=== PATIENT | female | born 1945 | race Caucasian/White ===

== ENCOUNTER 2017-10-27 12:30 | Emergency (ER) | payer BC, OTHER ==
[2017-10-27 13:08] VITALS: BP 112/46
--- NOTE | 2017-10-27 13:54 | ED Physician Documentation ---
Lower Extremity Injury - HISTORIAN Historian: patient - HPI Stated Complaint: L foot pain Chief Complaint: Lower Extremity Injury Onset: hours Where: home Severity: moderate Context: fall Associated Symptoms:: swelling Modifying Factors:: pain on movement - ROS CONST: no problems CVS/RESP: none GI/: denies: problems urinating, nausea, vomiting, other MS/SKIN/LYMPH: none NEURO: denies: headache, head injury, anxiety, depression - PAST HX Past History: diabetes Type 2, other (liver cirrohosis, hypothyroid, asthma) Allergies/Adverse Reactions: Allergies Allergy/AdvReac Type Severity Reaction Status Date / Time aspirin Allergy Verified 10/27/17 13:11 cephalexin [From Keflex] Allergy Verified 10/27/17 13:11 codeine Allergy Verified 10/27/17 13:11 erythromycin base Allergy Verified 10/27/17 13:11 Penicillins Allergy Verified 10/27/17 13:11 Sulfa (Sulfonamide Allergy Verified 10/27/17 13:11 Antibiotics) Tetracyclines Allergy Verified 10/27/17 13:11 Home Medications: Ambulatory Orders Medication Instructions Recorded Fluticasone Propionate [Flonase] 1 puff INH DAILY 10/27/17 Furosemide [Lasix] 40 mg PO DAILY 10/27/17 Insulin Aspart [Novolog Flexpen] 10 units SQ AC30 10/27/17 Insulin Glargine,Hum.rec.anlog 35 units SQ HS 10/27/17 [Lantus Solostar] Lactulose [Constulose] 30 ml PO TID 10/27/17 Levothyroxine Sodium [Synthroid] 75 mcg PO DAILY 10/27/17 Montelukast Sodium [Singulair] 10 mg PO DAILY 10/27/17 Sertraline HCl [Zoloft] 50 mg PO DAILY 10/27/17 Zoledronic Acid [Reclast] 1 tab IV DIRECTED 10/27/17 - SOCIAL HX Smoking History: cigarettes - FAMILY HX Family History: denies: none - VITAL SIGNS Vital Signs: Vital Signs Temp Pulse Resp BP Pulse Ox 70 17 112/46 96 10/27/17 14:15 10/27/17 14:15 10/27/17 14:15 10/27/17 14:15 - REVIEWED ASSESSMENTS Nursing Assessment Reviewed: Yes Vitals Reviewed: Yes Progress - Progress Progress: Patient is followed closely by PCP for liver cirrhosis; states she called her today regarding her pedal edema. Patient placed in walking boot. Tolerated well. Discussed pain management; patient does not want oral narcotic at this time. ED Results Lab/Radiology - Orders Orders: ED Orders Category Date Time Status Walking Boot 1T Care 10/27/17 13:54 Active FOOT 3 VIEWS OR MORE [RAD] Stat Exams 10/27/17 Completed Lower Extremities Injury Phy - Physical Exam General Appearance: mild distress Hips: bilateral hip: non-tender, normal inspection, normal range of motion, no evidence of injury Legs: bilateral: non-tender, normal inspection, normal range of motion, no evidence of injury Knees: bilateral: non-tender, normal inspection, normal range of motion, no evidence of injury Ankle: bilateral: non-tender, normal inspection, normal range of motion, no evidence of injury Foot: right foot: non-tender, left foot: bone tenderness (along 5th metatarsal) , pain, soft tissue tenderness, bilateral foot: normal inspection, normal range of motion, no evidence of injury, swelling (2+ edema) Gait: limited by pain Neuro/Vascular/Tendon: no vascular compromise, motor nml, sensation nml, ROM nml Resp/CVS: chest non-tender, breath sounds nml, heart sounds nml, no resp. distress, lungs clear, reg. rate & rhythm Discharge Clincal Impression: Fracture of 5th metatarsal Qualifiers: Encounter type: initial encounter Fracture type: closed Fracture alignment: displaced Laterality: left Qualified Code(s): S92.352A - Displaced fracture of fifth metatarsal bone, left foot, initial encounter for closed fracture Fall at home Qualifiers: Encounter type: initial encounter Qualified Code(s): W19.XXXA - Unspecified fall, initial encounter; Y92.009 - Unspecified place in unspecified non- institutional (private) residence as the place of occurrence of the external cause; Y92.009 - Unspecified place in unspecified non-institutional (private) residence as the place of occurrence of the external cause Referrals: Pasquale Valdes [Primary Care Provider] - 2 Days Additional Instructions: Wear boot at times. May remove to shower. No weight bearing without ortho boot on Rest Ice Elevation Call orthopedics for a follow up appointment in the next 2-3 days. See attached. Take your disc and report to the appointment. Return to the ER right away if: You cannot wiggle the toes or your toes are pale or blue Disposition: 07 AGAINST MEDICAL ADVICE Decision to Admit: NO Decision Time: 13:54
--- NOTE | 2017-10-27 18:19 | Diagnostic Imaging Report ---
MICHELLE VENEGAS (VOCATIONAL TECHNICAL EDUCATION DIRECTOR) - ER [facility] [address] [facility].[address] [address] Report Submission Date: October 27, 2017 1:22:58 PM CDT Patient Study Name: VIRGINIE CARRINGTON Date: October 27, 2017 12:59:24 PM CDT Modality Type: DX Gender: F Description: LOWER EXTREMITY : 45 Institution: [facility] Physician: MICHELLE VENEGAS (VOCATIONAL TECHNICAL EDUCATION DIRECTOR) - ER Examination: Plain film left foot History: PT C/O LATERAL LEFT FOOT PAIN X 1 DAY AFTER FALL. (Hx) Findings: 3 views of the left foot demonstrates a spiral lucency involving the 5th metatarsal. Articular degenerative changes. No other acute cortical abnormality. Generalized soft tissue fullness. No joint effusion. Impression: Spiral fracture 5th metatarsal. Generalized soft tissue fullness. Electronically signed on October 27, 2017 1:22:58 PM CDT by: Xander CORTEZ
== END 2017-10-27 14:15 | disposition left against medical advice (07) ==
LOC: ED 12:30
DX: S92.352A Displaced fracture of fifth metatarsal bone, left foot, initial encounter for closed fracture (principal); W19.XXXA Unspecified fall, initial encounter; Y92.009 Unspecified place in unspecified non-institutional (private) residence as the place of occurrence of the external cause
CPT/HCPCS: 73630; L4360; 99283

== ENCOUNTER 2017-11-08 13:33 | Outpatient (CLI) | payer OTHER ==
[2017-11-08 14:44] LABS: eGFR (African) > 60; eGFR (Non-African) > 60
== END 2017-11-08 14:06 ==
LOC: LAB 13:33
PROVIDERS: ATTEND Student in an Organized Health Care Education/Training Program
DX: K74.60 Unspecified cirrhosis of liver (principal)
CPT/HCPCS: 36415; 80053

== ENCOUNTER 2017-11-25 16:25 | Emergency (ER) | payer OTHER ==
--- NOTE | 2017-11-25 17:23 | ED Physician Documentation ---
General Adult - HISTORIAN Historian: patient, other (brother PODaniel) - HPI Stated Complaint: Weakness Chief Complaint: Weakness Additional Information: PT VERY WEAK TODAY SAYS "I JUST NEED REST" BUT YESTERDAY QUITE ACTIVE FELT GOOD. went to bed 2200 brother found her still in bed 1400 hard to awaken and hard to get oobed. Onset: days ago (today FSBS + 211) Timing: still present Severity: mild, moderate - ROS CONST: weakness ( TIRED) EYES/ENT: denies: problems with vision CVS/RESP: denies: chest pain GI/: none MS/SKIN/LYMPH: none NEURO/PSYCH: denies: headache, fainting, dizziness, tingling - PAST HX Past History: other (NON ALCOHOLIC LIVER CIRROSIS-OCC HI AMMONIA. DM2 LO THRYOID GERD.---PT HOSP JUL DUE TO HI AMMONIA) - SOCIAL HX Smoking History: non-smoker Alcohol Use: none Drug Use: none - FAMILY HX Family History: No - VITAL SIGNS Vital Signs: Vital Signs Temp Pulse Resp BP Pulse Ox 98.7 F 83 17 99/36 94 11/25/17 16:30 11/25/17 16:30 11/25/17 16:30 11/25/17 16:30 11/25/17 16:30 - REVIEWED ASSESSMENTS Nursing Assessment Reviewed: Yes Vitals Reviewed: Yes <Fly Newberry - Last Filed: 11/25/17 18:15> - PAST HX Past History: other Immunizations: referred to PCP - VITAL SIGNS Vital Signs: Vital Signs Temp Pulse Resp BP Pulse Ox 98.7 F 66 15 98/35 98 11/25/17 19:54 11/25/17 19:54 11/25/17 19:54 11/25/17 19:54 11/25/17 19:54 <Jamel Bryan - Last Filed: 11/25/17 23:27> - PAST HX Allergies/Adverse Reactions: Allergies Allergy/AdvReac Type Severity Reaction Status Date / Time aspirin Allergy Verified 11/25/17 17:03 cephalexin [From Keflex] Allergy Verified 11/25/17 17:03 codeine Allergy Verified 11/25/17 17:03 erythromycin base Allergy Verified 11/25/17 17:03 Penicillins Allergy Verified 11/25/17 17:03 Sulfa (Sulfonamide Allergy Verified 11/25/17 17:03 Antibiotics) Tetracyclines Allergy Verified 11/25/17 17:03 Home Medications: Ambulatory Orders Medication Instructions Recorded Fluticasone Propionate [Flonase] 1 puff INH DAILY 10/27/17 Lactulose [Constulose] 30 ml PO TID 10/27/17 Levothyroxine Sodium [Synthroid] 75 mcg PO DAILY 10/27/17 Montelukast Sodium [Singulair] 10 mg PO DAILY 10/27/17 Sertraline HCl [Zoloft] 50 mg PO DAILY 10/27/17 Zoledronic Acid/Mannitol-Water 1 tab IV DIRECTED 10/27/17 [Reclast] Furosemide [Lasix] 3 tab PO DAILY 11/25/17 Insulin Glargine,Hum.rec.anlog 45 unit SQ HS 11/25/17 [Lantus Solostar] Insulin Regular, Human [Novolin R] 30 units SQ AC30 11/25/17 Potassium Chloride [Potassium 15 ml PO BID 11/25/17 Chloride] Rifaximin [Xifaxan] 1 tab PO BID 11/25/17 Spironolactone [Aldactone] 1 tab PO DAILY 11/25/17 Progress - Results/Orders Results/Orders: cxr, ct abdomen and pelvis without contrast, bnp, amylase, ammonia (sendout), ua , pt/ptt/inr, cmp, cbc ordered - Progress Progress: Pt. given 750 cc NS bolus and NS at 125 cc/hr. O2 2L NC because O2 was 90-94% on RA. Pt. given 500 mg Levaquin IVPB given pt's allergies, most appropriate ab. <Jamel Bryan S - Last Filed: 11/25/17 23:27> Critical Care Note - Critical Care Note Total Time (mins): 30 <Jamel Bryan - Last Filed: 11/25/17 23:27> ED Results Lab/Radiology - Orders Orders: ED Orders Category Date Time Status AMMONIA Routine Lab 11/25/17 Ordered CBC/PLATELET/DIFF Routine Lab 11/25/17 Ordered CMP Routine Lab 11/25/17 Ordered PT-INR Routine Lab 11/25/17 Ordered PTT Routine Lab 11/25/17 Ordered URINALYSIS Routine Lab 11/25/17 Ordered <Fly Newberry R - Last Filed: 11/25/17 18:15> - Lab Results Lab Results: Lab Results 11/25/17 11/25/17 11/25/17 21:40 20:46 18:20 WBC RBC Hgb Hct MCV MCH MCHC RDW Plt Count PT INR APTT Sodium 127 mmol/L L mmol/L (136-145) Potassium 4.7 mmol/L mmol/L (3.5-5.1) Chloride 96 mmol/L L mmol/L (98-107) Carbon Dioxide 22 mmol/L mmol/L (22-30) BUN 30 mg/dL H mg/dL (7-17) Creatinine 1.20 mg/dL H mg/dL (0.52-1.04) Estimated Creat Clear 75 Est GFR ( Amer) > 60 (60 - ) Est GFR (Non-Af Amer) > 60 (60 - ) Glucose 229 mg/dL H mg/dL (74-106) Calcium 8.7 mg/dL mg/dL (8.4-10.2) Total Bilirubin 5.1 mg/dL H mg/dL (0.2-1.3) AST 59 U/L H U/L (15-46) ALT 43 U/L U/L (13-69) Alkaline Phosphatase 107 U/L U/L (38-126) NT-Pro-B Natriuret Pep 999.0 pg/mL H pg/mL (15.0-125.0) Total Protein 6.2 g/dL L g/dL (6.3-8.2) Albumin 2.7 g/dL L g/dL (3.5-5.0) Urine Color Romelia (YELLOW) Urine Appearance Clear (CLEAR) Urine pH 5.5 (5.0 - 8.0) Ur Specific Hobson 1.010 (1.010-1.030) Urine Protein Negative mg/dL mg/dL (NEGATIVE) Urine Ketones Negative mg/dL mg/dL (NEGATIVE) Urine Occult Blood Negative (NEGATIVE) Urine Nitrite Negative (NEGATIVE) Urine Bilirubin Negative (NEGATIVE) Urine Urobilinogen 0.2 Eu Eu (0.2-1.0) Ur Leukocyte Esterase Negative (NEGATIVE) Urine Glucose Negative mg/dL mg/dL (NEGATIVE) 11/25/17 11/25/17 18:20 18:20 WBC 17.00 K/ul H K/ul (4.00-12.00) RBC 3.59 M/ul L M/ul (3.90-5.20) Hgb 12.0 g/dL g/dL (12.0-16.0) Hct 37.1 % % (34.5-46.5) MCV 103.5 fl H fl (80.0-100.0) MCH 33.4 pg pg (28.0-34.0) MCHC 32.3 g/dL g/dL (30.0-36.0) RDW 14.6 % H % (11.3-14.3) Plt Count 63 K/mm3 L K/mm3 (130-400) PT 14.4 Seconds H Seconds (9.4-11.6) INR 1.37 H (0.9-1.2) APTT 31.8 Seconds Seconds (24.5-32.8) Sodium Potassium Chloride Carbon Dioxide BUN Creatinine Estimated Creat Clear Est GFR ( Amer) Est GFR (Non-Af Amer) Glucose Calcium Total Bilirubin AST ALT Alkaline Phosphatase NT-Pro-B Natriuret Pep Total Protein Albumin Urine Color Urine Appearance Urine pH Ur Specific Hobson Urine Protein Urine Ketones Urine Occult Blood Urine Nitrite Urine Bilirubin Urine Urobilinogen Ur Leukocyte Esterase Urine Glucose - Radiology Radiology Impressions: cxr clear, ct abdomen/pelvis shows muliple ruptured diverticuli with fluid and air in abdominal cavity - Orders Orders: ED Orders Category Date Time Status Further Nursing Orders 1T Care 11/25/17 21:[address] IV Lock 1T Care 11/25/17 18:20 Active CHEST 1VIEW [RAD] Routine Exams 11/25/[address] ABDOMEN PELVIS S [CT ABD & PELVIS W/O CON] Stat Exams 11/25/17 Completed AMMONIA Routine Lab 11/25/17 18:20 Received BNP [NT-proBNP] Routine Lab 11/25/17 20:46 Completed CBC/PLATELET/DIFF Routine Lab 11/25/17 18:20 Completed CMP Routine Lab 11/25/17 18:20 Completed PT-INR Routine Lab 11/25/17 18:20 Completed PTT Routine Lab 11/25/17 18:20 Completed UA MACRO DIP ONLY Routine Lab 11/25/17 21:40 Completed 0.9 % Sodium Chloride [Normal Saline] 1,000 ml Med 11/25/17 21:00 Ordered IV Q8H 0.9 % Sodium Chloride [Normal Saline] 500 ml Med 11/25/17 20:01 Discontinued IV NOW 0.9 % Sodium Chloride [Normal Saline] 500 ml Med 11/25/17 20:56 Discontinued IV NOW 0.9 % Sodium Chloride [Sodium Chloride] 250 ml Med 11/25/17 20:00 Discontinued IV .STK-MED Chem Sticks Med 11/25/17 16:50 Ordered 1 each CHEMQ Levofloxacin 500Mg/D5w 100Ml [Levaquin] 100 ml Med 11/25/17 22:01 Discontinued IV .STK-MED Levofloxacin 500Mg/D5w 100Ml [Levaquin] 500 mg Med 11/25/17 21:58 Discontinued Premix Bag [Premix Fluid] 1 bag IV NOW Oxygen Daily Oxygen 11/25/17 20:15 Ordered Transfer Routine Transfer 11/25/17 Ordered <Jamel Bryan S - Last Filed: 11/25/17 23:27> General Adult Physical Exam - PHYSICAL EXAM GENERAL APPEARANCE: moderate distress EENT: eye inspection normal (POSS SCLER ICTURUS), no signs of dehydration, scleral icterus, anisocoria. No: EOM palsy, hearing deficit NECK: normal inspection, thyroid normal, supple RESPIRATORY: no resp distress, chest non-tender, breath sounds normal CVS: reg rate & rhythm, heart sounds normal ABDOMEN: soft, non-tender BACK: normal inspection SKIN: warm/dry, jaundice. No: normal color, cyanosis, diaphoresis, mottled EXTREMITIES: non-tender, normal range of motion, no evidence of injury, no edema NEURO: oriented X3, motor nml, sensation nml, mood/affect nml, cognition normal <Fly Newberry R - Last Filed: 11/25/17 18:15> - PHYSICAL EXAM ABDOMEN: non-tender, decreased BS. No: rigid, rebound <Jamel Bryan S - Last Filed: 11/25/17 23:27> Discharge <Fly Newberry - Last Filed: 11/25/17 18:15> Comments: Case discussed with Dr. Woods who accepts ER to ER [facility] to [facility]. Pt. transferred in stable condition via ground ambulance. Decision to Admit: NO Decision Time: 22:50 <Jamel Bryan - Last Filed: 11/25/17 23:27> Clincal Impression: Diverticulosis large intestine w/o perforation or abscess w/bleeding Referrals: Anderson Oliver MD [Primary Care Provider] - 2 Days Condition: Stable Disposition: [facility] HOSP
[2017-11-25 18:45] LABS: MEAN CORPUSCULAR HEMOGLOBIN 33.4 pg (28.0-34.0); MEAN CORPUSCULAR VOLUME 103.5 fl (80.0-100.0)
[2017-11-25 18:52] LABS: eGFR (African) > 60; eGFR (Non-African) > 60
[2017-11-25 19:55] VITALS: BP 98/35
[2017-11-25] MEDS ORDERED: 0.9 % SODIUM CHLORIDE 250 ML IV ONE (20:00)
[2017-11-25] MEDS ORDERED: 0.9 % SODIUM CHLORIDE 500 ML IV ONE ×2 (20:01→20:56)
[2017-11-25] MEDS ORDERED: 0.9 % SODIUM CHLORIDE 1,000 ML IV SCH (21:00)
[2017-11-25] MEDS ORDERED: LEVOFLOXACIN 500MG/D5W 100ML 500 MG in PREMIX BAG 1 BAG IV ONE (21:58)
[2017-11-25] MEDS ORDERED: LEVOFLOXACIN 500MG/D5W 100ML 100 ML IV ONE (22:01)
[2017-11-25 22:10] LABS: APPEARANCE,URINE CLEAR (CLEAR); COLOR,URINE AMBER (YELLOW); OCCULT BLOOD,URINE NEGATIVE (NEGATIVE); PH URINE 5.5 (5.0 - 8.0)
[2017-11-25 22:11] LABS: UROBILINOGEN URINE 0.2 Eu (0.2-1.0)
--- NOTE | 2017-11-25 22:47 | Diagnostic Imaging Report ---
[facility] [place] [facility] [address] [facility] [address] [address] Report Submission Date: Nov 25, 2017 9:46:50 PM CDT Patient Study Name: VIRGINIE CARRINGTON Date: Nov 25, 2017 9:05:31 PM CDT Modality Type: DX Gender: F Description: CHEST : 45 Institution: [facility] Physician: ZOE SIMON Chest AP portable Date of Exam: November 25, 2017. History: PT STATES CHEST PAIN AND SOB (Hx) / ITS.REASON elevated wbc Findings: No comparison studies are provided. The cardiac and mediastinal silhouettes are normal. The lungs are clear. There is no evidence of pulmonary infiltrate or pleural effusion. The trachea is midline and the aortic arch contour is normal. The pulmonary vascularity is within normal limits. There is healed deformity of the left humeral head. Impression: No acute cardiopulmonary abnormality. Electronically signed on Nov 25, 2017 9:46:50 PM CDT by: Ino CORTEZ
--- NOTE | 2017-11-25 22:48 | Diagnostic Imaging Report ---
[facility] [id number] [facility] [address] [place], [place]. [address] Report Submission Date: Nov 25, 2017 9:33:28 PM CDT Patient Study Name: VIRGINIE CARRINGTON Date: Nov 25, 2017 8:30:09 PM CDT Modality Type: CT\SR Gender: F Description: CT ABD PELVIS W/O CO : 45 Institution: [facility] Physician: ZOE SIMON CT abdomen and pelvis without contrast Date of study: November 25, 2017. CLINICAL HISTORY: PT STATES ABDOMINAL PAIN AND NAUSEA TODAY (Hx) / ITS.REASON cirrhosis TECHNIQUE: 1.25 mm contiguous axial images of the abdomen and pelvis non contrast. no reconstructions. FINDINGS: The lung bases are clear aside from bibasilar scarring and atelectasis. Abdomen: The liver nodular and surface contour suggesting underlying cirrhosis. The pancreas and spleen are normal in appearance. Gallstones are present in the gallbladder and gallbladder neck. The kidneys are normal in size and surface contour. There is a 2 mm left renal parenchymal calculus. No hydronephrosis or perinephric stranding is evident. The aorta is normal in caliber with scattered atherosclerotic calcifications evident. The small bowel is nondistended. There is no evidence of free air. Pelvis: Infiltration of the subcutaneous fat of the anterior left pelvis is present and may represent a soft tissue infection or cellulitis. A redundant portion of the sigmoid colon lies anterior to the rectum in the lower central pelvis and there are numerous small foci of air outside the wall of the colon. Considerations include focal colonic perforation, diverticulitis and less likely ischemic colitis. The distal ureters and bladder are normal in appearance. There is no evidence of distal ureteral or intravesicular calculi. There is a small volume of right pelvic free fluid. The remaining pelvic structures are within normal limits and the bones of the pelvis are intact. Grade I L45 anterior spondylolisthesis is present with disc bulging at L3/L4, L4 /L5 and L5/S1. IMPRESSION: Numerous small foci of air in the lower central pelvis outside the colon. Considerations include focal colonic perforation, diverticulitis and less likely ischemic colitis. Small volume of pelvic free fluid. Cirrhosis. Cholelithiasis. 2 mm left renal parenchymal calculus. The critical results were communicated to Dr. Simon in the ER at 9:30 pm. Electronically signed on Nov 25, 2017 9:33:28 PM CDT by: Ino CORTEZ
[2017-11-26 11:13] LABS: SEGMENTED NEUTROPHILS % 94 % (39-79)
[2017-11-26 11:14] LABS: MONOCYTES % 4 % (0-11)
== END 2017-11-25 23:25 | disposition short-term general hospital (02) ==
LOC: ED 16:25
DX: K57.33 Diverticulitis of large intestine without perforation or abscess with bleeding (principal)
CPT/HCPCS: 71045; 74176; 80053; 81002; 82140; 83880; 85025; 85610; 85730; J1956; J7030; J7060; 96365; 96366; 96368; 99291; S1016

== ENCOUNTER 2018-05-05 13:27 | Outpatient (CLI) | payer OTHER ==
[2018-05-05 14:20] LABS: eGFR (Non-African) > 60
== END 2018-05-05 13:32 | disposition home or self-care (01) ==
LOC: LAB 13:27
PROVIDERS: ATTEND Family Medicine
DX: K75.81 Nonalcoholic steatohepatitis (NASH) (principal); E11.9 Type 2 diabetes mellitus without complications
CPT/HCPCS: 36415; 80053; 83036